=== PATIENT | male | born 1985 | race Caucasian/White ===

== ENCOUNTER 2019-06-09 08:17 | Emergency (ER) | payer MEDICAID, OTHER ==
[~2019-06-09] VITALS: Ht 185.4 cm; Wt 83.9 kg
[2019-06-09 08:43] VITALS: BP 116/68
[2019-06-09] MEDS ORDERED: METHOCARBAMOL 500 MG TAB PO ONE (09:15)
[2019-06-09] MEDS ORDERED: KETOROLAC TROMETH 60MG/2ML VIAL IM ONE (09:15)
== END 2019-06-09 09:35 | disposition home or self-care (01) ==
LOC: ER 08:22
DX: M54.16 Radiculopathy, lumbar region (principal); J45.909 Unspecified asthma, uncomplicated; F17.210 Nicotine dependence, cigarettes, uncomplicated
CPT/HCPCS: 96372; 99283; J1885